=== PATIENT | female | born 1995 | race Hispanic/Latino ===

== ENCOUNTER 2018-08-31 07:27 | Day surgery (SDC) | payer BC ==
[2018-08-30 17:15] LABS: Absolute Lymphocytes (CBC) 2.2 K/uL (0.7-4.9); Basophils % 0.5 % (0-1.3); Eosinophils % 2.6 % (0-4.4); Hematocrit 38.6 % (36.0-45.0); Lymphocytes % 33.9 % (15.3-44.8); MPV 9.2 fL (7.6-11.3); Monocytes % 8.2 % (3.3-12.3); RBC Red Blood Cell Count 4.45 M/uL (3.86-4.86)
[2018-08-30 17:28] LABS: BUN Blood Urea Nitrogen 16 mg/dL (7-18); Bicarbonate 30 mmol/L (21-32); Glucose Level 89 mg/dL (74-106); Potassium 3.7 mmol/L (3.5-5.1); Sodium Level 145 mmol/L (136-145)
[2018-08-30 17:38] LABS: Bilirubin Direct 0.1 mg/dL (0-0.2); Bilirubin Total 0.4 mg/dL (0.2-1.0); Protein, Total 7.5 g/dL (6.4-8.2)
--- OUTSIDE RECORDS SUMMARY | 2018-08-31 07:36 | XMS REPORT ---
:1995 [facility] Address [address] [place] [address] Dr. Jonas. [address] [place] [id number] Care Team Providers Name Role Phone Unavailable Unavailable Unavailable Problems This patient has no known problems. Allergies, Adverse Reactions, Alerts This patient has no known allergies or adverse reactions. Medications This patient has no known medications.
[2018-08-31] MEDS ORDERED: Ringers Lactate 1,000 ML IV ONE (08:07)
[2018-08-31] MEDS ORDERED: PROPOFOL 200 MG/20 ML VIAL IV ONE (08:31)
[2018-08-31] MEDS ORDERED: FENTANYL CITR 100 MCG/2 ML ONE (08:32)
[2018-08-31] MEDS ORDERED: MIDAZOLAM HCL 2 MG/2 ML INJ ONE (08:32)
[2018-08-31] MEDS ORDERED: LIDOCAINE 2% MPF 5 ML VIAL ONE (08:33)
[2018-08-31] MEDS ORDERED: ROCURONIUM 50 MG/5 ML VIAL IV ONE (08:34)
[2018-08-31] MEDS ORDERED: ONDANSETRON 4 MG/2 ML VIAL ONE (08:34)
[2018-08-31] MEDS ORDERED: CEFOXITIN/SWI 1gm 1 GM/10 ML SYR ONE (09:00)
[2018-08-31] MEDS ORDERED: DEXAMETHASONE 10 MG/ML VIAL ONE (10:03)
--- NOTE | 2018-08-31 10:20 | P.BOP ---
Preoperative diagnosis: symptomatic cholelithiasis, RUQ abd pain Postoperative diagnosis: same Primary procedure: Laparoscopic cholecystectomy Imposer: VIVEK SIMMONS (strong nitric operator) Estimated blood loss: <5cc Specimen: gb Findings: as above Anesthesia: General Complications: None Transferred to: Recovery Room Condition: Fair
[2018-08-31] MEDS ORDERED: GLYCOPYRROLATE 0.2 MG/ML SYR ONE (10:30)
[2018-08-31] MEDS ORDERED: NEOSTIGMINE 1 MG/ML -10 ML VIAL ONE (10:30)
[2018-08-31] MEDS ORDERED: KETOROLAC 30 MG/ML INJ ONE (10:40)
[2018-08-31] MEDS ORDERED: MORPHINE 4 MG/ML SYR ONE (11:23)
[2018-08-31] MEDS ORDERED: HYDROCODONE/APAP 7.5/325 MG TAB PO ONE (11:55)
[2018-08-31] MEDS ORDERED: HYDROCODONE/APAP 7.5/325 MG TAB ONE (12:11)
[2018-08-31] MEDS ORDERED: HYDROCODONE/APAP 10/325 TAB ONE (14:46)
--- NOTE | 2018-08-31 22:02 | OP ---
Date of Procedure: 08/31/2018 Surgeon: Popeye Mason MD Trading Manager: HAILEY Monge. Preoperative Diagnoses: Symptomatic cholelithiasis, right upper quadrant abdominal pain. Postoperative Diagnoses: Symptomatic cholelithiasis, right upper quadrant abdominal pain. Procedure: Laparoscopic cholecystectomy. Estimated Blood Loss: Less than 5 cc. Specimen: Gallbladder. Anesthesia: General plus local. Indications: This is a case of a 22-year-old patient, comes to us with above diagnosis. Fully expla ined the benefits, alternatives, and risks of laparoscopic, possible open cholecystectomy, which incl ude but are not limited to infection, bleeding, damage to adjacent structures, anesthesia complicatio n, choledocholithiasis, bile leak, pancreatitis, IA, and even . She also understands this may n ot relieve any symptoms, she might need more than one surgical intervention. She understood, signed a consent. Description Of Procedure: The patient was brought to the operating room, placed in supine position. Anesthesia was done without complication. Abdominal area was prepped and draped in a sterile fashio n. Marcaine 0.5% was injected for local anesthetic, followed by sharp incision of the skin in the in fraumbilical region. Incision was carried down to fascia, which was opened under direct vision. Per itoneum was encountered, opened under direct vision. Vicryl #1 placed inside the fascia. Ravi tro car was carefully introduced. Pneumoperitoneum was obtained. I placed 3 more trocars, 5 mm each one of them, in the right upper quadrant under direct visualization. This allowed me to put a grasper i n the fundus of the gallbladder, another grasper in the infundibulum, retracted the gallbladder in th e inferolateral fashion exposing the triangle of Calot, obtaining critical view of safety. The cysti c duct and cystic artery were clearly isolated free circumferentially and a connection between those and the gallbladder were clearly identified. I proceeded to ligate those by using at least 3 clips p roximal, 1 clip distal, ligation in middle. Same was done with the cystic artery. No bile leak. No bleeding. The gallbladder was removed from liver using Bovie cauterizer and removed from abdominal cavity using an EndoCatch through the umbilical incision. The area was inspected once again. No jorge l e leak. No bleeding. Clips were intact. At that moment, I proceeded to remove the trocars under di rect vision, deflated the pneumoperitoneum, closed the fascia with #1 Vicryl, irrigated subcutaneous tissue, closed that with 3-0 chromic and skin in a subcuticular fashion with 3-0 chromic and Steri-St rips on top. Sponge count and instrument counts were correct. The patient tolerated the procedure w ell. The patient was sent to recovery in stable condition. GENNA/JORDAN Voice ID: [id number] Report ID: [id number]
--- NOTE | 2018-08-31 22:10 | DS ---
Date of Discharge: 08/31/2018 Diagnoses: Symptomatic cholelithiasis, right upper quadrant abdominal pain. Procedure: Laparoscopic cholecystectomy. Disposition: Home. Activity: As tolerated. No heavy lifting. Followup: Follow up in my office in 1 week. Call for appointment [phone]. Keep the area dry for 4 8 hours and then may shower. Keep Steri-Strips intact. Medications: Include Tylenol No. 4 q.4 hours p.r.n. pain, Bactrim DS p.o. b.i.d. GENNA/JORDAN Voice ID: [id number] Report ID: [id number]
== END 2018-08-31 12:25 | disposition home or self-care (01) ==
LOC: OR 07:27
PROVIDERS: ATTEND Surgery
PROC: 0FT44ZZ Resection of Gallbladder, Percutaneous Endoscopic Approach (ICD-10-PCS; principal; 2018-08-31 08:45)
DX: K80.12 Calculus of gallbladder with acute and chronic cholecystitis without obstruction (principal)
CPT/HCPCS: 36415; 80048; 80076; 82150; 83690; 84703; 85025; 88304; J1100; J2250; J2405; J2704; J2710; J3010